=== PATIENT | female | born 1995 | race Native Hawaiian/Other Pacific Islander ===

== ENCOUNTER 2025-07-05 12:28 | Outpatient (CLI) | payer MEDICAID, SELFPAY ==
[2025-07-05 15:59] LABS: Coronavirus 19, PCR Not Detected (NotDetected); Influenza A, PCR Not Detected (NotDetected); Influenza B, PCR Not Detected (NotDetected)
== END 2025-07-05 23:59 ==
LOC: LAB.DROPOF 07-07 12:28
PROVIDERS: PCP Nurse Practitioner; Visit Provider Nurse Practitioner
DX: J06.9 Acute upper respiratory infection, unspecified (principal)
CPT/HCPCS: 87631

== ENCOUNTER 2025-07-17 11:14 | Emergency (ER) | payer MEDICAID, SELFPAY ==
[2025-07-17 11:20] VITALS: BP 121/70; PULSE 84; O2SAT 98
[2025-07-17 11:24] VITALS: BP 121/72; PULSE 81; RESP 18; TEMP 36.8; O2SAT 97; BMI 26.5
[2025-07-17 11:34] VITALS: BP 117/72; PULSE 70; O2SAT 97
--- OUTSIDE RECORDS SUMMARY | 2025-07-17 11:42 | XMS_ITS | Clinical Summary ---
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 Medications No information available. Medications Administered No information available. Allergies, Adverse Reactions, Alerts No information available. Results No information available. Plan of Care No information available. Procedures No information available. Vital Signs No information available. Immunizations No information available. Advance Directives No information available.
--- NOTE | 2025-07-17 12:02 | [facility].EDGENADL ---
Discharge Plan Disposition Patient Disposition: Home, Self-Care Prescriptions Prescriptions: No Action spinosad [Natroba] 0.9 % suspension 120 ml topical Q7D Qty: 120 1RF Referrals Follow up/Referrals: Leopoldo Mc DO [Staff Physician, Family Practice] - See instructions Provider,Referral, [Primary Care Provider, Medical] - See instructions Activity Restrictions/Add. Instructions Additional Instructions/Restrictions: No evidence of an emergent neurologic or vascular emergency today. Your symptoms today are consistent with a recurrent or breakthrough migraine. I recommend you follow-up with Dr. Mc for chronic management of your migraines as well as establishment of a primary care doctor in our region. Return with any high fevers neck stiffness neurologic complaints or other concerns. Clinical Impressions Clinical Impression: Migraine Print Language Print Language: Amharic Discharge ED Provider: Morenita Joyce General Adult HPI General Chief complaint: Headache Stated complaint: migraine, fever Time Seen by Provider: 07/17/25 11:57 Mode of Arrival: Ambulatory Source of Information: Patient Description of Symptoms (Recalled from ER Triage Doc. by RN): Reports a migraine. States she has had a headache for several days and it has continued to get worse. Does feel like her other migraines just worse in pain. History of Present Illness HPI narrative: Patient is a 30-year-old female with a history of chronic migraines who presents today with a headache that she describes as a migraine similar to severe episode she has had in the past. She states that she normally has about 13 to 15 days each month with a headache. She recently moved from [place] used to be on propranolol for chronic suppression but she has been off of that for quite some time because it did not work she states. She has no primary care doctor around here which is where she lives now. She denies any fevers neck stiffness photophobia or any other atypical symptoms. No sudden onset either. Related Data Previous Rx's ?Medication ?Instructions ?Recorded spinosad 0.9 % topical suspension 120 ml topical Q7D 2 doses #120 mL 07/16/25 (Natroba) Allergies Allergy/AdvReac Type Severity Reaction Status Date / Time varicella virus vaccine live Allergy Intermediate Muscle Pain Verified 07/16/25 13:55 [facility] Disclaimer: The information contained in this section may have been updated after the patient was seen, as this information can be updated by other users. Medical History Viral upper respiratory infection No pertinent past medical history Surgical History History of wisdom tooth extraction History of 3 sections Family History Grandfather Cancer Grandmother Cancer Social History Smoking Status: Current every day smoker alcohol intake: never current occupational status: employed Travel in the last 8 weeks?: None Have you lived/traveled outside [place] in past 30 days?: No Contact w/someone who lives/traveled outside US past 30 days?: No Exposure to someone with infectious disease in past 14 days?: No Do you have a fever (greater than 100.4 F or 38 C)?: No Have you tested positive for COVID-19?: No Exposed to someone with COVID-19 in past 14 days?: No Do you have a sore throat?: No Do you have a cough?: No Do you have any weakness?: No Do you have any diarrhea?: No Are you experiencing any unusual bleeding?: No Do you have any muscle aches/pain?: No Do you have any abdominal pain?: No Are you experiencing loss of taste or smell?: No ROS Obtained: Yes All systems reviewed & no additional complaints except as documented Physical Exam General General appearance: alert and in no apparent distress Respiratory Respiratory exam: Present normal lung sounds bilaterally Cardiovascular Cardiovascular exam: Present regular rate Neurological Exam Neurological exam: Present alert, oriented X3, CN II-XII intact and normal gait; Absent motor sensory deficit Medical Decision Making Medical Records Screening: Per USPSTF and CDC recommendations, given the prevalence of disease in our region, it is our hospital?s policy to screen for HIV and viral Hepatitis for all patients aged 18 and over and those with ongoing risk factors. Monty Inquiry Pt receiving controlled substance: No Vital Signs: 07/17/25 11:20 07/17/25 11:24 07/17/25 11:34 Temperature 98.3 F Temperature Source Oral Pulse Rate 84 70 Pulse Rate [Radial] 81 Respiratory Rate 18 Blood Pressure 121/70 117/72 Blood Pressure [Right Arm] 121/72 Blood Pressure Mean [Right Arm] 88 Blood Pressure Source [Right Arm] Automatic Cuff Blood Pressure Position [Right Arm] Sitting 02 Sat by Pulse Oximetry 98 97 97 Oxygen Delivery Method Room Air Room Air Room Air 07/17/25 12:45 Temperature Temperature Source Pulse Rate 69 Pulse Rate [Radial] Respiratory Rate Blood Pressure Blood Pressure [Right Arm] Blood Pressure Mean [Right Arm] Blood Pressure Source [Right Arm] Blood Pressure Position [Right Arm] 02 Sat by Pulse Oximetry 97 Oxygen Delivery Method Room Air Orders (Tests/Meds): ED MEDICATIONS Discontinued Medications Generic Name Dose Route Start Last Admin Trade Name Freq PRN Reason Stop Dose Admin Dexamethasone Sodium Phosphate 10 mg 07/17/25 12:01 07/17/25 12:31 Dexamethasone 4mg/Ml 1ml Vial IV 07/17/25 12:02 10 mg ONCE ONE Administration Diphenhydramine HCl 25 mg 07/17/25 12:01 07/17/25 12:34 Diphenhydramine 50mg/Ml Vial IV 07/17/25 12:02 25 mg ONCE ONE Administration Lactated Ringer's 1,000 mls @ 999 mls/hr 07/17/25 12:15 07/17/25 13:18 Lactated Ringer's 1000 Ml Bag IV 07/17/25 13:15 Infused .Q1H1M ARACELI Infusion Ketorolac Tromethamine 15 mg 07/17/25 12:01 07/17/25 12:34 Ketorolac 30mg/Ml Vial IV 07/17/25 12:02 15 mg ONCE ONE Administration Prochlorperazine Edisylate 10 mg 07/17/25 12:01 07/17/25 12:36 Prochlorperazine 10mg/2ml Vial IV 07/17/25 12:02 10 mg ONCE ONE Administration ORDERS Category Date Time Status HIV Combo Stat Lab 07/17/25 11:50 Received Hepatitis C Ab Qual. W/ RFX Stat Lab 07/17/25 11:50 Received Medical Decision Narrative: 30-year-old GCS of 15 normal neurologic exam presents today with a migraine with her history no red flags from history or physical standpoint to suggest that this is a subarachnoid hemorrhage vascular dissection meningitis etc. Will give a cocktail of medications for her migraine and reassess. Reassessment 1:30 PM patient was sleeping comfortably I woke her up she is feeling much better and is ready to go home. She states that she would not like a refill of her propranolol and is comfortable following up with Dr. Mc to establish primary care at [place]. Return precautions emphasized patient was discharged in stable condition with serial neurologic exams being normal and she was very well upon being discharged. Critical Care Critical Care Time Critical Care Time: No
[2025-07-17] MEDS: DEXAMETHASONE 4MG/ML 1ML VIAL 10 MG IV (12:31)
[2025-07-17] MEDS: KETOROLAC 30MG/ML VIAL 15 MG IV (12:34)
[2025-07-17] MEDS: LACTATED RINGERS 1000ML 1,000 ML 999 ML IV (12:36)
[2025-07-17] MEDS: PROCHLORPERAZINE 10MG/2ML VIAL 10 MG IV (12:36)
[2025-07-17 12:45] VITALS: PULSE 69; O2SAT 97
[2025-07-17 13:31] VITALS: BP 120/74; PULSE 80; RESP 20; TEMP 36.8; O2SAT 98
[2025-07-17 13:47] LABS: Hepatitis C Ab Qual. W/ RFX NEGATIVE (Negative)
== END 2025-07-17 13:32 | disposition home or self-care (01) ==
PROVIDERS: Emergency Provider Student in an Organized Health Care Education/Training Program
DX: G43.909 Migraine, unspecified, not intractable, without status migrainosus (principal); F17.210 Nicotine dependence, cigarettes, uncomplicated
CPT/HCPCS: 86803; 87389; 96361; 96374; 96375; 99284; 99285; J0780; J1100; J1200; J1885; J7120